=== PATIENT | female | born 1990 | race Caucasian/White ===

== ENCOUNTER 2019-10-31 14:44 | Inpatient (IN) | payer OTHER ==
[~2019-10-31] VITALS: Ht 157.5 cm; Wt 2.7 kg
[2019-11-03] MEDS ORDERED: CODE1TAB37 PO (13:33)
== END 2019-11-03 14:37 | disposition home or self-care (01) | DRG 788 ==
LOC: LDR 14:44 → OB/GYN 14:44
PROVIDERS: ADMIT Obstetrics & Gynecology
PROC: 4A1HXCZ Monitoring of Products of Conception, Cardiac Rate, External Approach (ICD-10-PCS; 2019-10-31)
PROC: 10D00Z1 Extraction of Products of Conception, Low, Open Approach (ICD-10-PCS; principal; 2019-10-31 15:00)
DX: O82 Encounter for cesarean delivery without indication (principal); O64.1XX0 Obstructed labor due to breech presentation, not applicable or unspecified; Z3A.37 37 weeks gestation of pregnancy; Z37.0 Single live birth